=== PATIENT | female | born 1940 | race Caucasian/White ===

== ENCOUNTER 2017-01-26 09:15 | Emergency (ER) | payer MEDICARE, BC ==
[2017-01-26 09:21] VITALS: BP 147/68
--- NOTE | 2017-01-26 10:28 | ED ---
Lower Extremity - HPI Summary HPI Summary: Pt here w/ Rt foot pain since twisting foot/ankle yesterday while clearing brush from her yard. Has bruising around a few toes. Pain worse w/ moving toes and weight bearing. Denies numbness, tingling, weakness. Has not tried anything for pain (ie. heat/ice, pain relievers). Lt ankle/foot is starting to hurt as well - no numbness, tingling, weakness or bruising here. No previous issues w/ feet or ankles - no ankle or knee pain. - History of Current Complaint Chief Complaint: EDExtremityLower Stated Complaint: RT FOOT INJURY Time Seen by Provider: 01/26/17 09:26 Hx Obtained From: Patient Pain Intensity: 5 - Allergies/Home Medications Allergies/Adverse Reactions: Allergies Allergy/AdvReac Type Severity Reaction Status Date / Time No Known Allergies Allergy Verified 01/26/17 09:18 PMH/Surg Hx/FS Hx/Imm Hx Previously Healthy: Yes Endocrine/Hematology History: Denies: Hx Anticoagulant Therapy - ASA daily, Hx Blood Disorders, Hx Unexplained Bleeding Cardiovascular History: Reports: Hx Hypercholesterolemia - takes statin, Hx Hypertension - takes metoprolol Musculoskeletal History: Denies: Hx Osteoporosis - Cancer History Hx Chemotherapy: No Hx Radiation Therapy: No Infectious Disease History: No Infectious Disease History: Denies: Traveled Outside the [place] in Last 30 Days - Family History Known Family History: Positive: Other - brother - of lymphoma - Social History Occupation: Retired Lives: Alone Alcohol Use: Occasionally Hx Substance Use: No Substance Use Type: Reports: None Hx Tobacco Use: Yes Smoking Status (MU): Current Every Day Smoker Amount Used/How Often: 1PPD Review of Systems Constitutional: Negative Negative: Fever, Chills Positive: no symptoms reported Musculoskeletal: Other - see HPI Positive: Bruising - see HPI Neurological: Negative Psychological: Normal All Other Systems Reviewed And Are Negative: Yes Physical Exam Triage Information Reviewed: Yes Vital Signs On Initial Exam: Initial Vitals Temp Pulse Resp BP Pulse Ox 99.2 F 80 16 147/68 97 01/26/17 09:19 01/26/17 09:19 01/26/17 09:19 01/26/17 09:19 01/26/17 09:19 Vital Signs Reviewed: Yes Appearance: Positive: Well-Appearing, No Pain Distress - at rest - concerned, Well-Nourished Skin: Positive: Warm, Dry - mild ecchymosis over dorsal aspect of Rt MTP's 2-3 Head/Face: Positive: Normal Head/Face Inspection Eyes: Positive: EOMI ENT: Positive: Hearing grossly normal Respiratory/Lung Sounds: Positive: Breath Sounds Present Cardiovascular: Positive: Normal, Pulses are Symmetrical in both Upper and Lower Extremities. Negative: Leg Edema Left, Leg Edema Right Musculoskeletal: Positive: Strength/ROM Intact - FROM ankle, toes - ankle NTTP, no pain w/ movement, Pain @ - Rt 2,3 MTPs are TTP- toes painful to move here Neurological: Positive: Sensory/Motor Intact, Alert, Oriented to Person Place, Time Psychiatric: Positive: Anxious - but calm and cooperative Diagnostics - Vital Signs Vital Signs Temp Pulse Resp BP Pulse Ox 01/26/17 09:19 99.2 F 80 16 147/68 97 - Laboratory Lab Statement: Any lab studies that have been ordered have been reviewed, and results considered in the medical decision making process. Lower Extremity Course/Dx - Diagnoses Provider Diagnoses: Multiple closed fractures of metatarsal bone of right foot - Physician Notifications Discussed Care Of Patient With: Richard Johnson - surgical walking shoe, f/u Discharge - Discharge Plan Condition: Stable Disposition: HOME Patient Education Materials: How to Stop Smoking (ED), Foot Fracture in Adults (ED) Referrals: Richard Johnson MD [Medical Doctor] - Additional Instructions: You appear to have multiple fractures in the bones of your Right foot. It is advised that you wear the stiff soled shoe provided for you today and use your heel to bear weight. Rest, ice, elevate and wear RIVERA wrap for pain, swelling. You may take ibuprofen alternating with acetaminophen for pain Smoking cessation is advised to help bone health/hasten healing process ( information enclosed) Follow-up with orthopedist this week - call today to schedule an appointment
--- NOTE | 2017-01-26 11:04 | RAD ---
Indication: RIGHT foot sprain. Pain and bruising at the second and third metatarsal phalangeal joint levels. Comparison: February 18, 2011 DEXA scan remarkable for osteopenia. Technique: AP, lateral, and oblique views RIGHT foot. Report: Bone density appears decreased throughout. Normal articular alignment. Mildly impacted nondisplaced fracture at the distal metaphysis of the second metatarsal. Suggestion of mild callus formation indicating healing response. Oblique fracture through the junction of the distal diaphysis and distal metaphysis of the third metatarsal with one bone width lateral displacement and mild foreshortening. Suggestion of mild callus formation indicating healing response. Transverse fracture through the distal diaphysis of the fourth metatarsal with one half bone width lateral displacement and minimal impaction. Suggestion of mild callus formation indicating healing response. Small plantar fascia origin bone spur. Soft tissue swelling about the forefoot. IMPRESSION: Subacute appearing second, third, and fourth nonarticular metatarsal fractures with early healing response as described. Correlate with timing of injury. Predisposing decreased bone density.
== END 2017-01-26 12:21 | disposition home or self-care (01) ==
LOC: ED 09:15
DX: S92.301A Fracture of unspecified metatarsal bone(s), right foot, initial encounter for closed fracture (principal); M79.671 Pain in right foot; F17.210 Nicotine dependence, cigarettes, uncomplicated; X50.9XXA Other and unspecified overexertion or strenuous movements or postures, initial encounter; Y93.89 Activity, other specified; Y92.9 Unspecified place or not applicable
CPT/HCPCS: 99282